=== PATIENT | male | born 1970 | race African-American/Black ===

== ENCOUNTER 2019-05-09 06:56 | Inpatient (IN) | payer OTHER ==
[~2019-05-09] VITALS: Ht 193 cm; Wt 136.3 kg
[2019-05-09 07:42] LABS: BASOPHILS % (AUTO) 0.6 % (0.0-2.0); EOSINOPHILS % (AUTO) 3.4 % (1.0-6.0); HEMATOCRIT 39.5 % (41-53); HEMOGLOBIN 13.1 g/dL (13.5-17.5); LYMPHOCYTES # (AUTO) 1.8 K/uL (1.0-4.8); LYMPHOCYTES % (AUTO) 35.3 % (22.0-44.0); MEAN CORPUSCULAR HEMOGLOBIN 30.5 pg (26.0-34.0); MEAN CORPUSCULAR HGB CONC 33.3 G/dL (31.0-37.0); MEAN CORPUSCULAR VOLUME 92 fL (80-100); MONOCYTES # (AUTO) 0.7 K/uL (0.1-1.0); MONOCYTES % (AUTO) 13.4 % (2.0-9.0); NEUTROPHILS # (AUTO) 2.4 K/uL (1.8-7.7); NEUTROPHILS % (AUTO) 47.3 % (40.0-70.0); PLATELET COUNT (AUTO) 190 K/uL (150-450); RED CELL DISTRIBUTION WIDTH 13.9 % (11.5-14.5)
[2019-05-09 07:48] LABS: AMPHET/METH SCREEN,URINE POSITIVE (NEGATIVE); BARBITURATE SCREEN, URINE NEGATIVE (NEGATIVE); BENZODIAZEPINES SCREEN,URINE POSITIVE (NEGATIVE); CANNABINOID SCREEN,URINE NEGATIVE (NEGATIVE); COCAINE SCREEN,URINE POSITIVE (NEGATIVE); METHADONE SCREEN, URINE NEGATIVE (NEGATIVE); OPIATE SCREEN,URINE NEGATIVE (NEGATIVE)
[2019-05-09 07:49] LABS: PHENCYCLIDINE SCREEN,URINE NEGATIVE (NEGATIVE)
[2019-05-09 07:52] LABS: ANION GAP 12 mmol/L (8-16); CALCIUM, TOTAL 9.2 mg/dL (8.8-10.5); CARBON DIOXIDE 26 mmol/L (22-29); CHLORIDE 102 mmol/L (98-107); CREATININE 1.36 mg/dL (0.60-1.30); GLOMERULAR FILTR. RATE CALC > 60 mL/min (>60); GLUCOSE,RANDOM 95 mg/dL (70-110); POTASSIUM 3.7 mmol/L (3.5-5.1); SODIUM SERUM 140 mmol/L (136-145); UREA NITROGEN, BLOOD 19 mg/dL (7-18)
[2019-05-09 07:57] LABS: ALANINE AMINOTRANSFERASE 46 U/L (12-78); ALBUMIN 3.8 g/dL (3.4-5.0); ALKALINE PHOSPHATASE 80 U/L (46-116); ASPARTATE AMINOTRANSFERASE 33 U/L (15-37); BILIRUBIN,TOTAL 0.8 mg/dL (0.1-1.0); TOTAL PROTEIN, SERUM 7.2 g/dL (6.4-8.2)
[2019-05-09 08:05] LABS: SALICYLATE 3.9 mg/dL (2.8-20.0)
[2019-05-09 08:15] LABS: ACETAMINOPHEN < 2 mcg/mL (10-30)
[2019-05-09] MEDS ORDERED: LORazepam 2 MG TABLET PO PRN ×2 (09:15→12:30)
[2019-05-09] MEDS ORDERED: ZOLPIDEM TARTRATE 10 MG TABLET PO PRN (09:15)
[2019-05-09] MEDS ORDERED: QUEtiapine FUMARATE 100 MG TABLET PO PRN (09:15)
[2019-05-09] MEDS ORDERED: PROMETHAZINE HCL 25 MG TABLET PO PRN (12:30)
[2019-05-09] MEDS ORDERED: HydrOXYzine PAMOATE 50 MG CAPSULE PO PRN (12:30)
[2019-05-09] MEDS ORDERED: LOPERAMIDE HCL 2 MG CAPSULE PO PRN (12:30)
[2019-05-09] MEDS ORDERED: MAGNESIUM HYDROXIDE SUSPENSION 30 ML UDCUP PO PRN (12:30)
[2019-05-09] MEDS ORDERED: TUBERCULIN, PURIFIED PROTEIN DERIVATIVE 5 TU/0.1 ML SYRINGE ID ONE (12:30)
[2019-05-09] MEDS ORDERED: CYANOCOBALAMIN 1,000 MCG/ML VIAL IM ONE (12:30)
[2019-05-09] MEDS ORDERED: GuaiFENesin/D-METHORPHAN [SUGAR-FREE] 200-20MG/10 ML SYRUP UDCUP PO PRN (12:30)
[2019-05-09] MEDS ORDERED: ACETAMINOPHEN 325 MG TABLET PO PRN ×2 (12:30→22:30)
[2019-05-09] MEDS ORDERED: MAG HYDROX/AL HYDROX/SIMETH ES 30 ML SUSPENSION UDCUP PO PRN (12:30)
[2019-05-09 17:51] VITALS: BP 133/76
[2019-05-09 20:30] VITALS: BP 113/79
[2019-05-09] MEDS: MIRTAZAPINE 15 MG TABLET PO SCH (21:00)
[2019-05-09] MEDS: THIAMINE HCL 100 MG TABLET PO SCH (21:26)
[2019-05-09] MEDS ORDERED: IBUPROFEN 400 MG TABLET PO PRN (22:30)
[2019-05-10 04:35] VITALS: BP 124/74
[2019-05-10] MEDS ORDERED: LORazepam 2 MG TABLET PO PRN (07:00)
[2019-05-10] MEDS: LORazepam 2 MG TABLET PO SCH ×4 (09:00→21:00)
[2019-05-10] MEDS: THIAMINE HCL 100 MG TABLET PO SCH ×2 (09:00→16:56)
[2019-05-10] MEDS: FOLIC ACID 1 MG TABLET PO SCH (09:00)
[2019-05-10] MEDS: NALTREXONE HCL 50 MG TABLET PO SCH (09:00)
[2019-05-10] MEDS: MULTIVITAMINS WITH MINERALS, THERAPEUTIC TABLET PO SCH (09:00)
[2019-05-10] MEDS ORDERED: LOPERAMIDE HCL 2 MG CAPSULE PO PRN (12:30)
[2019-05-10 16:00] VITALS: BP 116/68
[2019-05-10 17:05] VITALS: BP 116/68
[2019-05-10 20:47] VITALS: BP 121/78
[2019-05-10] MEDS: MIRTAZAPINE 15 MG TABLET PO SCH (21:00)
[2019-05-11 03:49] VITALS: BP 122/80
[2019-05-11 03:52] VITALS: BP 122/80
[2019-05-11 08:21] VITALS: BP 132/61
[2019-05-11 08:22] VITALS: BP 132/61
[2019-05-11 08:39] LABS: CHOL/HDL RATIO 5.3 (4.2-7.3); FREE T4 (FREE THYROXINE) 1.1 ng/dL (0.76-1.46); THYROID STIMULATING HORMONE 1.42 uIU/mL (0.36-3.74)
[2019-05-11] MEDS: NALTREXONE HCL 50 MG TABLET PO SCH (09:00)
[2019-05-11] MEDS: MULTIVITAMINS WITH MINERALS, THERAPEUTIC TABLET PO SCH (09:00)
[2019-05-11] MEDS: LORazepam 2 MG TABLET PO SCH ×4 (09:00→20:50)
[2019-05-11] MEDS: FOLIC ACID 1 MG TABLET PO SCH (09:00)
[2019-05-11] MEDS: THIAMINE HCL 100 MG TABLET PO SCH ×2 (09:00→16:50)
[2019-05-11 17:27] VITALS: BP 123/65
[2019-05-11] MEDS ORDERED: NALT50TA PO (18:49)
[2019-05-11] MEDS ORDERED: MIRT15 PO (18:49)
[2019-05-11] MEDS: MIRTAZAPINE 15 MG TABLET PO SCH (20:50)
[2019-05-12] MEDS ORDERED: LORazepam 1 MG TABLET PO PRN (07:00)
[2019-05-12] MEDS ORDERED: LORazepam 1 MG TABLET PO SCH (09:00)
[2019-05-13] MEDS ORDERED: LORazepam 1 MG TABLET PO PRN (07:00)
== END 2019-05-11 22:45 | disposition left against medical advice (07) | DRG 885 ==
LOC: EMS 06:56 → B3A 16:14
PROVIDERS: ADMIT Psychiatry & Neurology Psychiatry; ATTEND Psychiatry & Neurology Psychiatry
DX: F33.9 Major depressive disorder, recurrent, unspecified (principal); R45.851 Suicidal ideations; D64.9 Anemia, unspecified; M79.606 Pain in leg, unspecified; Z53.21 Procedure and treatment not carried out due to patient leaving prior to being seen by health care provider; F14.10 Cocaine abuse, uncomplicated; F17.210 Nicotine dependence, cigarettes, uncomplicated; G89.29 Other chronic pain; F12.10 Cannabis abuse, uncomplicated; F15.10 Other stimulant abuse, uncomplicated; N18.9 Chronic kidney disease, unspecified; Z59.9 Problem related to housing and economic circumstances, unspecified; Z63.8 Other specified problems related to primary support group; Z65.3 Problems related to other legal circumstances; Z91.5 Personal history of self-harm; Z59.0 Homelessness; Z91.19 Patient's noncompliance with other medical treatment and regimen
CPT/HCPCS: 83036; 84439; 84443; 86592; G0480; G0481; J3420